=== PATIENT | female | born 1985 | race Caucasian/White ===

== ENCOUNTER 2017-07-14 12:24 | Outpatient (CLI) | payer BC ==
[2017-07-14] MEDS ORDERED: ISOVUE-370 76%-LOCM 1 ML ONE (13:28)
== END 2017-07-14 12:25 | disposition home or self-care (01) ==
LOC: BICCT 12:24
PROVIDERS: ATTEND Urology
DX: R31.29 Other microscopic hematuria (principal); N20.0 Calculus of kidney
CPT/HCPCS: 74178

== ENCOUNTER 2018-05-19 12:10 | Outpatient (CLI) | payer BC | END 2018-05-19 12:11 | disposition home or self-care (01) | LOC: BICMAMMO 12:10 | PROVIDERS: ATTEND Nurse Practitioner | DX: Z12.31 Encounter for screening mammogram for malignant neoplasm of breast (principal); Z80.3 Family history of malignant neoplasm of breast | CPT/HCPCS: 77063; 77067 ==